=== PATIENT | female | born 1950 | race Caucasian/White ===

== ENCOUNTER → 2020-08-01 | Outpatient (CLI) | payer MEDICARE ==
--- NOTE | 2020-08-01 13:48 | CT ---
EXAMINATION TYPE: CT abdomen pelvis w con DATE OF EXAM: 08/01/2020 COMPARISON: NONE HISTORY: 70-year-old female bilateral upper quadrant pain, elevated liver enzymes TECHNIQUE: Contiguous axial scanning of the abdomen and pelvis following administration of 100 ml Iso katalina 300 IV contrast. Delayed images through the kidneys and coronal/sagittal reconstructions perform ed. CT DLP: 564.9 mGycm Automated exposure control for dose reduction was used. FINDINGS: Heart normal size without pericardial effusion. There is a small left pleural effusion. Mild generali zed anasarca change. Strandy atelectasis at the left base. Large hiatal hernia involving the entire stomach located within the lower chest. 3.6 cm diverticulum of the third portion of the duodenum projecting up into the pancreatic head regio n. Shrunken, cirrhotic morphology of the liver. Heterogeneous enhancement is present. Portal venous syst em is patent. No biliary ductal dilatation. Gallbladder shows no abnormal distention. Mild wall thickening probably related to cirrhosis. Adrenal glands, spleen, and pancreas appear within normal limits. A couple subcentimeter hypodensity upper pole left kidney too small for accurate CT characterization, likely small cortical cysts. Right kidney satisfactory. Symmetric uptake and excretion of contrast f rom both kidneys. Moderate abdominopelvic ascites involving the 4 abdominal quadrants. No mesenteric or retroperitoneal lymphadenopathy identified. No dilated small bowel or free air. Oral contrast progressed to the rectum. No definite pericolonic inflammatory change. Bladder shows mild wall thickening. Uterus retroverted. Suggesting of a round cystic lesion measuring 7.9 cm within the anterior right paramedian pelvis, axi al image 69 and sagittal image 52. Multiple pelvic phlebolith. No definite pelvic lymphadenopathy. Bones: Mild degenerative change of the hips. Mild superior endplate deformities of L1 and L2 have a c hronic appearance. There is grade 1 anterolisthesis L4-L5. IMPRESSION: 1. SHRUNKEN AND CIRRHOTIC LIVER. 2. GIVEN MODERATE ABDOMINOPELVIC ASCITES, CORRELATE FOR PORTAL VENOUS HYPERTENSION. ADDITIONAL FLUID OVERLOAD GIVEN ANASARCA AND TRACE LEFT EFFUSION. 3. A 7.9 CM CYSTIC LESION WITHIN THE ANTERIOR RIGHT PARAMEDIAN PELVIS POSSIBLY ARISING FROM THE RIGHT OVARY. PELVIC ULTRASOUND CAN ATTEMPT BETTER CHARACTERIZATION. OUTPATIENT MEDICAL PHYSICS RESEARCHER REFERRAL MAY BE KARLOS CATED IF OVARIAN ETIOLOGY IS CONFIRMED. 4. LARGE HIATAL HERNIA WITH the ENTIRE STOMACH LOCATED IN THE LOWER THORAX.
== END | disposition home or self-care (01) ==
LOC: RADCTMAIN 11:27
PROVIDERS: ATTEND Family Medicine
DX: K74.60 Unspecified cirrhosis of liver (principal); K76.6 Portal hypertension; K44.9 Diaphragmatic hernia without obstruction or gangrene; R18.8 Other ascites; E87.70 Fluid overload, unspecified; M84.859 Other disorders of continuity of bone, unspecified pelvic region and thigh
CPT/HCPCS: 74177; Q9967